=== PATIENT | female | born 1985 | race Caucasian/White ===

== ENCOUNTER 2017-12-05 10:22 | Emergency (ER) | payer MEDICAID, OTHER ==
[~2017-12-05] VITALS: Ht 167.6 cm; Wt 84.1 kg
[2017-12-05 10:39] VITALS: BP 112/72
== END 2017-12-05 12:46 | disposition home or self-care (01) ==
LOC: ED 12:15
DX: S93.401A Sprain of unspecified ligament of right ankle, initial encounter (principal); X50.1XXA Overexertion from prolonged static or awkward postures, initial encounter; Y93.89 Activity, other specified; Y92.009 Unspecified place in unspecified non-institutional (private) residence as the place of occurrence of the external cause; Y99.8 Other external cause status
CPT/HCPCS: 99284